=== PATIENT | female | born 1935 | race Caucasian/White ===

== ENCOUNTER 2016-12-20 18:52 | Emergency (ER) | payer MEDICARE ==
[~2016-12-20] VITALS: Ht 162.6 cm; Wt 51.7 kg
[~2016-12-20 18:52] MED LIST: CARDURA4 MG PO; DISOPYRAMIDE P100 MG PO; FENOFIBRATE160 MG PO; FEOSOL325 MG PO; FOSAMAX70 MG PO; HYDROCODON-ACE1 EA10 PO; LEVAQUIN500 MG PO; LEVOTHYROXINE125 MCG PO; METAMUCIL PACK1 EACH PO; METOPROLOL TAR100 MG PO; NORCO 5-325 TA1 EACH PO; OMEPRAZOLE20 MG PO; OXYCODONE-ACET1 EAC1 PO; SUCRALFATE1 GM PO; SUCRALFATE1 GM/10 ML PO; VITAMIN D2000 UNIT PO; ZOFRAN ODT4 MG PO
[2016-12-20] MEDS ORDERED: COLESTIPOL HCL1 GM PO (20:00)
[2016-12-20] MEDS ORDERED: DIPHENOXYLATE-1 EACH PO (20:02)
[2016-12-20] MEDS ORDERED: ONDANSETRON ODT8 MG PO (20:02)
== END 2016-12-21 02:24 | disposition short-term general hospital (02) ==
LOC: ED 18:52
DX: N13.2 Hydronephrosis with renal and ureteral calculous obstruction (principal); N12 Tubulo-interstitial nephritis, not specified as acute or chronic; I12.0 Hypertensive chronic kidney disease with stage 5 chronic kidney disease or end stage renal disease; N18.9 Chronic kidney disease, unspecified; E78.00 Pure hypercholesterolemia, unspecified; I48.91 Unspecified atrial fibrillation; Z90.710 Acquired absence of both cervix and uterus; Z88.2 Allergy status to sulfonamides; Z88.0 Allergy status to penicillin; Z88.1 Allergy status to other antibiotic agents; Z79.899 Other long term (current) drug therapy
CPT/HCPCS: 74177; 80053; 81001; 83690; 85025; 87088; 96361; 96374; 96375; 96376; 99291; J0696; J1170; J1885; J2405; J7030; Q9967

== ENCOUNTER 2017-01-22 13:43 | Inpatient (IN) | payer MEDICARE ==
[~2017-01-22] VITALS: Ht 162.6 cm; Wt 51.4 kg
[~2017-01-22 13:43] MED LIST changes: +COLESTIPOL HCL1 GM PO; +DIPHENOXYLATE-1 EACH PO; +ONDANSETRON ODT8 MG PO
--- NOTE | 2017-01-22 19:04 | EKG ---
[facility] [address] [facility] [place] [address] Signed Normal sinus rhythm Right bundle branch block T wave abnormality, consider inferior ischemia Abnormal ECG When compared with ECG of 02-FEB-2016 10:23, Current undetermined rhythm precludes rhythm comparison, needs review QRS duration has increased QT has lengthened Confirmed by ANA MARÍA NORRIS MD ([id number] on 01/22/2017 7:04:01 PM Electronically Signed By: ANA MARÍA NORRIS MD 01/22/17 [id number] PATIENT NAME: PASQUALE BALL Electrocardiogram DATE OF : 33 PHYSICIAN: ANA MARÍA NORRIS MD REPORT #: [id number] REPORT IS CONFIDENTIAL AND NOT TO BE RELEASED WITHOUT AUTHORIZATION
== END 2017-01-26 15:00 | disposition home or self-care (01) | DRG 872 ==
LOC: ED 13:43 → CCU 18:13 → MS 18:13
PROVIDERS: ADMIT Internal Medicine
DX: A41.4 Sepsis due to anaerobes (principal); N17.9 Acute kidney failure, unspecified; E87.1 Hypo-osmolality and hyponatremia; E87.2 Acidosis; R53.81 Other malaise; I48.0 Paroxysmal atrial fibrillation; I10 Essential (primary) hypertension; E03.9 Hypothyroidism, unspecified; R19.7 Diarrhea, unspecified; R13.12 Dysphagia, oropharyngeal phase; Z66 Do not resuscitate; D64.9 Anemia, unspecified
CPT/HCPCS: 36415; 36600; 51702; 71010; 71020; 74176; 80053; 80069; 81001; 82803; 83605; 83735; 84100; 84484; 85025; 87040; 87045; 87046; 87077; 87088; 87177; 87186; 87205; 87209; 87493; 92610; 93005; 93010; 97110; 97163; 97165; 97530; J0696; J1650; J2270; J2405; J3370; J3475; J3480; J7030; J7060; J7120; P9047